=== PATIENT | female | born 2000 | race Caucasian/White ===

== ENCOUNTER 2022-04-22 00:54 | Inpatient (IN) ==
[2022-04-22] MEDS: Morphine 2 MG/ML SYRINGE IV PRN ×8 (02:01→22:06)
[2022-04-22] MEDS ORDERED: Lactated Ringers 1000 ml BAG 1,000 ML IV SCH ×2 (03:00)
[2022-04-22] MEDS ORDERED: Ondansetron 4 mg VIAL 2 MG/ML 2 ml VIAL IV PRN (04:28)
[2022-04-22 05:14] LABS: ABS Lymphocytes 2.6 10^3/ul (1.0-4.8); ABS Monocytes 0.5 10^3/ul (0-0.8); ABS Neutrophils 4.8 10^3/ul (1.5-7.7); Eosinophil % 0.4 %; Hematocrit 34 % (35-47); Hemoglobin 11.8 g/dL (12.0-16.0); Lymphocyte % 32.7 %; Mean Corpuscular HGB Conc 34 g/dL (31-36); Mean Corpuscular Hemoglobin 33 pg (27-31); Mean Corpuscular Volume 96 fL (80-97); Mean Platelet Volume 7.4 fL (7.4-10.4); Platelet Count 209 10^3/uL (150-450); Red Cell Distribution Width 15 % (10-15); White Blood Count 7.9 10^3/uL (3.5-10.8)
[2022-04-22 05:17] LABS: INR 1.19 (0.89-1.11)
[2022-04-22 06:03] LABS: Albumin 3.4 g/dL (3.2-5.2); Albumin/Globulin Ratio 1.7 (1-3); Calcium 8.3 mg/dL (8.6-10.3); HDL Cholesterol 49.8 mg/dL; Potassium 3.5 mmol/L (3.5-5.0); Total Bilirubin 1.2 mg/dL (0.2-1.0); Total Protein 5.4 g/dL (6.4-8.9); eGFR CKD-EPI 137.2 (>60)
[2022-04-22] MEDS ORDERED: Magnesium Sulfate 2 gm BAG 2 GM/50 ML BAG IVPB ONE (09:11)
[2022-04-22 09:43] LABS: Magnesium 1.3 mg/dL (1.9-2.7)
[2022-04-22] MEDS: Lactated Ringers 1000 ml BAG 1,000 ML IV SCH ×2 (10:04→15:53)
[2022-04-22] MEDS: KCL 10 MEQ/50 ML IVPREMIX 10 MEQ/50 ML BAG IV SCH ×3 (11:41→17:09)
[2022-04-22] MEDS ORDERED: Magnesium Sulfate IV 3 GM in NS 0.9% 100 ml BAG 100 ML IVPB ONE (14:00)
[2022-04-22] MEDS ORDERED: KCL 10 MEQ/50 ML IVPREMIX 10 MEQ/50 ML BAG ONE (17:07)
[2022-04-23] MEDS: Lactated Ringers 1000 ml BAG 1,000 ML IV SCH ×2 (00:54→06:09)
[2022-04-23] MEDS: Morphine 2 MG/ML SYRINGE IV PRN ×4 (00:55→09:07)
[2022-04-23 04:52] LABS: ABS Eosinophils 0.1 10^3/ul (0-0.6); ABS Lymphocytes 1.9 10^3/ul (1.0-4.8); ABS Monocytes 0.4 10^3/ul (0-0.8); ABS Neutrophils 4.2 10^3/ul (1.5-7.7); Eosinophil % 1.3 %; Hematocrit 37 % (35-47); Hemoglobin 12.3 g/dL (12.0-16.0); Lymphocyte % 28.9 %; Mean Corpuscular HGB Conc 34 g/dL (31-36); Mean Corpuscular Hemoglobin 33 pg (27-31); Mean Corpuscular Volume 97 fL (80-97); Mean Platelet Volume 7.8 fL (7.4-10.4); Nucleated Red Blood Cells % 0.1; Platelet Count 193 10^3/uL (150-450); Red Blood Count 3.77 10^6 /uL (3.70-4.87); Red Cell Distribution Width 14 % (10-15); White Blood Count 6.7 10^3/uL (3.5-10.8)
[2022-04-23 05:08] LABS: Calcium 8.8 mg/dL (8.6-10.3); Potassium 3.7 mmol/L (3.5-5.0); eGFR CKD-EPI 140.6 (>60)
[2022-04-23] MEDS ORDERED: Acetaminophen IV 1 GM/100ML 1,000 MG/100 ML BAG IV PRN (11:25)
[2022-04-23 11:48] LABS: Albumin 3.8 g/dL (3.2-5.2); Albumin/Globulin Ratio 1.7 (1-3); Direct Bilirubin 0.3 mg/dL (0.03-0.18); Globulin 2.3 g/dL (2-4); Indirect Bilirubin 0.8 mg/dL (0.3-1.0); Total Bilirubin 1.1 mg/dL (0.2-1.0); Total Protein 6.1 g/dL (6.4-8.9)
[2022-04-23] MEDS ORDERED: Morphine 2 MG/ML SYRINGE IV PRN (12:35)
[2022-04-23] MEDS ORDERED: NS 0.9% 1000 ml BAG 1,000 ML IV SCH (13:30)
[2022-04-24 11:07] VITALS: BP 102/72
== END 2022-04-24 14:24 | disposition home or self-care (01) | DRG 282 ==
LOC: ED 00:54 → EDHOLD 00:54 → SUATTDRO 10:36 → MED 15:08
PROVIDERS: ADMIT Internal Medicine; ATTEND Family Medicine